=== PATIENT | male | born 1960 | race Caucasian/White ===

== ENCOUNTER → 2016-11-10 | Outpatient (CLI) | payer BC ==
--- NOTE | 2016-11-10 10:33 | RAD ---
MR of the left wrist Indication: Palpable bump just above the carpometacarpal joint, noticed 3 weeks ago. Pain with bending. Technique: Standard multiplanar sequences are obtained. Findings: Triangular fibrocartilage: Mild signal at the ulnar styloid attachment but no evidence of tear. The central disc and radial attachment appear intact. Extensor carpi ulnaris tendon: Mild tendinosis. Slight medial subluxation with deformity over the ulnar styloid, trace surrounding fluid. Other extensor compartments: Amsg-[id number]-fippeckk fluid within the first, second, third, fourth and fifth extensor compartments. Mild signal within the fourth compartment tendons, greater at the extensor carpi radialis brevis tendon compatible with tendinosis. Flexor tendons: Intact Median nerve: Unremarkable Scapholunate ligament: There is a full-thickness tear or perforation at the membranous component of the scapholunate ligament. The anterior and posterior bands are intact. Mild dorsal tilt of the lunate bone. Lunotriquetral ligament: No evidence of a tear. Fluid: Small distal radioulnar joint effusion. Joints: No advanced DJD. Bones: No lesion or acute fracture Soft tissues: Diffuse soft tissue edema along the dorsal aspect of the wrist. Impression: 1. Diffuse extensor tenosynovitis. There is intrinsic tendinosis of the fourth and sixth extensor compartments, with mild to moderate fluid in the first through fifth compartments. 2. Small tear or perforation at the membranous component of the scapholunate ligament. No evidence of tear involving the anterior or posterior bands. Electronically signed by: Domenic Nash MD (11/10/2016 10:30 AM) [id number]
== END | disposition home or self-care (01) ==
LOC: MRI 08:40
PROVIDERS: ATTEND Family Medicine
DX: M65.842 Other synovitis and tenosynovitis, left hand (principal); M79.89 Other specified soft tissue disorders
CPT/HCPCS: 73221